=== PATIENT | male | born 1970 | race Caucasian/White ===

== ENCOUNTER 2020-05-29 16:18 | Inpatient (IN) | payer OTHER ==
[2020-05-29 17:44] VITALS: BMI 28.2
--- NOTE | 2020-05-29 17:50 | HP ---
CIWA Score Nausea/Vomitin Muscle Tremors: 3 Anxiety: 5 Agitation: 1-Slight > Activity Paroxysmal Sweats: 2 Orientation: 0-Oriented Tacttile Disturbances: 0-None Auditory Disturbances: 0-None Visual Disturbances: 0-None Headache: 0-None Present CIWA-Ar Total Score: 13 - Admission Criteria OASAS Guidelines: Admission for Medically Managed Detox: Requires at least one of the followin. CIWA greater than 12 2. Seizures within the past 24 hours 3. Delirium tremens within the past 24 hours 4. Hallucinations within the past 24 hours 5. Acute intervention needed for co occurring medical disorder 6. Acute intervention needed for co occurring psychiatric disorder 7. Severe withdrawal that cannot be handled at a lower level of care (continued vomiting, continued diarrhea, abnormal vital signs) requiring intravenous medication and/or fluids 8. Admission ROS [facility] - [facility] Chief Complaint: Seeking admission to detox from alcohol Allergies/Adverse Reactions: Allergies Allergy/AdvReac Type Severity Reaction Status Date / Time No Known Allergies Allergy Verified 05/29/20 19:38 History of Present Illness: 49 years old male with a long history of alcohol dependence is seeking admission to detox. This is his first admission to [facility] and he denies any prior detoxification. He reports that he drinks 2 pints of Vodka daily and that he started drinking heavily and continuously at age 47 years. He has medical of DM type 2, hypertension, psych. history of depression and denies suicidal ideation at this time. He is unemployed, lives alone and denies legal issues. He reports + eye solution lead and denies blackout and alcohol related seizures. Exam Limitations: No Limitations - Ebola screening Have you traveled outside of the country in the last 21 days: No Have you had contact with anyone from an Ebola affected area: No Have you been sick,other than usual withdrawal symptoms: No Do you have a fever: No - Review of Systems Constitutional: Chills, Malaise, Changes in sleep EENT: reports: No Symptoms Reported Respiratory: reports: No Symptoms reported Cardiac: reports: No Symptoms Reported GI: reports: No Symptoms Reported, Nausea, Poor Appetite, Poor Fluid Intake, Abdominal cramping : reports: No Symptoms Reported Musculoskeletal: reports: No Symptoms Reported Integumentary: reports: No Symptoms Reported Neuro: reports: Tremors Endocrine: reports: No Symptoms Reported Hematology: reports: No Symptoms Reported Psychiatric: reports: Mood/Affect Appropiate, Orientated x3, Anxious Other Systems: Reviewed and Negative Patient History - Patient Medical History Hx Anemia: No Hx Asthma: No Hx Chronic Obstructive Pulmonary Disease (COPD): No Hx Cancer: No Hx Cardiac Disorders: No Hx Congestive Heart Failure: No Hx Hypertension: Yes (Carvedilol) Hx Hypercholesterolemia: No Hx Pacemaker: No HX Cerebrovascular Accident: No Hx Seizures: No Hx Diabetes: Yes (Type 2 - Metformin) Hx Gastrointestinal Disorders: No Hx Liver Disease: No Hx Genitourinary Disorders: No Hx Sexually Transmitted Disorders: No Hx Renal Disease (ESRD): No Hx Thyroid Disease: No Hx Human Immunodeficiency Virus (HIV): No (Negative 1992) Hx Hepatitis C: No Hx Depression: Yes (Not on medication) Hx Suicide Attempt: No (Denies suicidal ideation at this time) Hx Bipolar Disorder: No Hx Schizophrenia: No - Patient Surgical History Past Surgical History: Yes Hx Neurologic Surgery: No Hx Cataract Extraction: No Hx Cardiac Surgery: No Hx Lung Surgery: No Hx Abdominal Surgery: No Hx Appendectomy: Yes (At age 76 years old) Hx Cholecystectomy: No Hx Genitourinary Surgery: No Hx Orthopedic Surgery: Yes (Bilateral hip replacement at age 30 years) Anesthesia Reaction: No - PPD History Previous Implant?: Yes Documented Results: Negative w/o proof Implanted On Prior R Admission?: No PPD to be Administered?: Yes - Reproductive History Patient is a Female of Child Bearing Age (11 -55 yrs old): No (Male) - Smoking Cessation Smoking history: Never smoked Have you smoked in the past 12 months: No Hx Chewing Tobacco Use: No Initiated information on smoking cessation: No - Substance & Tx. History Hx Alcohol Use: Yes Hx Substance Use: No Substance Use Type: Alcohol Hx Substance Use Treatment: No - Substances abused Alcohol Substance route: Oral Frequency: Daily Amount used: 2 pints Vodka Age of first use: 13 Date of last use: 05/29/20 Admission Physical Exam BHS - Physical General Appearance: Yes: Moderate Distress, Tremorous HEENTM: Yes: Within Normal Limits Respiratory: Yes: Lungs Clear, Normal Breath Sounds, No Respiratory Distress Neck: Yes: Within Normal Limits Breast: Yes: Breast Exam Deferred Cardiology: Yes: Regular Rhythm, Regular Rate Abdominal: Yes: Within Normal Limits Genitourinary: Yes: Within Normal Limits Back: Yes: Normal Inspection Musculoskeletal: Yes: Within Normal Limits Neurological: Yes: Within Normal Limits Integumentary: Yes: Within Normal Limits Lymphatic: Yes: Within Normal Limits - Diagnostic (1) Alcohol dependence with withdrawal, uncomplicated Current Visit: Yes Status: Acute (2) Hypertension Current Visit: Yes Status: Chronic Qualifiers: Hypertension type: essential hypertension Qualified Code(s): I10 - Essential (primary) hypertension (3) Depression Current Visit: Yes Status: Chronic Qualifiers: Depression Type: unspecified Qualified Code(s): F32.9 - Major depressive disorder, single episode, unspecified Cleared for Admission [facility] - Detox or Rehab [facility] Level of Care: Medically Managed Detox Regimen/Protocol: Librium Claeared for Rehab Admission: No Inpatient Rehab Admission - Rehab Decision to Admit Inpatient rehab admission?: No
[2020-05-29] MEDS ORDERED: MAG HYDROX/AL HYDROX/SIMETH 30 ML UNIT-DOSE CUP PO PRN (18:05)
[2020-05-29] MEDS ORDERED: ACETAMINOPHEN 325 MG TABLET (FP) PO PRN ×2 (18:05)
[2020-05-29] MEDS ORDERED: MENTHOL/PHENOL 1 EACH UD MM PRN (18:05)
[2020-05-29] MEDS ORDERED: MAGNESIUM CITRATE 300 ML BOTTLE PO PRN (18:05)
[2020-05-29] MEDS ORDERED: ONDANSETRON *ODT* 4 MG TABLET SL ONE (18:05)
[2020-05-29] MEDS ORDERED: BISMUTH SUBSALICYLATE 524 MG/30 ML UD PO PRN (18:05)
[2020-05-29] MEDS ORDERED: MAGNESIUM HYDROX 2400MG/30ML ORAL SUSPENSION 30 ML CUP PO PRN (18:05)
[2020-05-29] MEDS ORDERED: COLLOIDAL OATMEAL 1 BAR EACH TP PRN (18:20)
[2020-05-29] MEDS: chlordiazePOXIDE HCL 25 MG CAPSULE PO SCH (21:27)
[2020-05-29] MEDS: THIAMINE HCL 100 MG TABLET (FP) PO SCH (21:28)
[2020-05-29] MEDS: MELATONIN 5 MG TABLETS PO SCH (21:28)
[2020-05-29] MEDS: CARVEDILOL 25 MG TABLET (FP) PO SCH (22:42)
[2020-05-30] MEDS: chlordiazePOXIDE HCL 25 MG CAPSULE PO SCH ×3 (05:36→22:29)
[2020-05-30] MEDS: metFORMIN HCL 500 MG TABLET (FP) PO SCH ×2 (06:46→17:23)
--- NOTE | 2020-05-30 09:21 | EKG ---
Test Reason : Blood Pressure : / mmHG Vent. Rate : 064 BPM Atrial Rate : 064 BPM P-R Int : 132 ms QRS Dur : 094 ms QT Int : 464 ms P-R-T Axes : 039 043 041 degrees QTc Int : 478 ms NORMAL SINUS RHYTHM LEFT ATRIAL ENLARGEMENT LEFT VENTRICULAR HYPERTROPHY ABNORMAL ECG Confirmed by MD SHI, MICHAEL ([id number]) on 05/30/2020 9:21:10 AM Referred By: Confirmed By:MICHAEL OSULLIVAN MD
[2020-05-30] MEDS: PRENATAL VITAMINS W/ FOLIC ACID TABLET (FP) PO SCH (10:17)
[2020-05-30] MEDS: CARVEDILOL 25 MG TABLET (FP) PO SCH ×2 (10:17→22:29)
[2020-05-30] MEDS: chlordiazePOXIDE HCL 10 MG CAPSULE PO PRN ×2 (10:20→17:25)
[2020-05-30 11:08] LABS: HEMATOCRIT 46.3 % (35.4-49); HEMOGLOBIN 15.7 GM/dL (11.7-16.9); MCH 31.3 pg (25.7-33.7); MCHC 33.8 g/dl (32.0-35.9); MEAN CELL VOLUME 92.7 fl (80-96); MEAN PLT VOLUME 9.5 fl (7.5-11.1); PLATELET COUNT 209 K/MM3 (134-434); WHITE BLOOD COUNT 11.1 K/mm3 (4.0-10.0)
[2020-05-30 11:17] LABS: ALBUMIN 3.3 g/dl (3.4-5.0); BILIRUBIN,TOTAL 1.3 mg/dL (0.2-1); BLOOD UREA NITROGEN 11.5 mg/dL (7-18); CALCIUM 9.2 mg/dL (8.5-10.1); CREATININE 0.9 mg/dL (0.55-1.3); POTASSIUM 3.2 mmol/L (3.5-5.1); TOT PROT 6.5 g/dl (6.4-8.2)
--- NOTE | 2020-05-30 12:50 | PN ---
S CIWA - CIWA Score Nausea/Vomitin Muscle Tremors: 3 Anxiety: 3 Agitation: 3 Paroxysmal Sweats: 1-Minimal Palms Moist Orientation: 0-Oriented Tacttile Disturbances: 1-Very Mild Itch/Numbness Auditory Disturbances: 0-None Visual Disturbances: 0-None Headache: 2-Mild CIWA-Ar Total Score: 15 BHS Progress Note (SOAP) Subjective: alert,irritable,anxious,interrupted ,aching pain in the body and back, Objective: 05/30/20 14:11 Vital Signs Temperature 97.1 F L 05/30/20 12:33 Pulse Rate 80 05/30/20 12:33 Respiratory Rate 18 05/30/20 12:33 Blood Pressure 93/69 05/30/20 12:33 O2 Sat by Pulse Oximetry (%) 97 05/30/20 12:33 05/30/20 14:12 Laboratory Last Values WBC 11.1 K/mm3 (4.0-10.0) H 05/30/20 08:10 RBC 5.00 M/mm3 (4.00-5.60) 05/30/20 08:10 Hgb 15.7 GM/dL (11.7-16.9) 05/30/20 08:10 Hct 46.3 % (35.4-49) 05/30/20 08:10 MCV 92.7 fl (80-96) 05/30/20 08:10 MCH 31.3 pg (25.7-33.7) 05/30/20 08:10 MCHC 33.8 g/dl (32.0-35.9) 05/30/20 08:10 RDW 14.0 % (11.9-15.9) 05/30/20 08:10 Plt Count 209 K/MM3 (134-434) 05/30/20 08:10 MPV 9.5 fl (7.5-11.1) 05/30/20 08:10 Sodium 138 mmol/L (136-145) 05/30/20 08:10 Potassium 3.2 mmol/L (3.5-5.1) L 05/30/20 08:10 Chloride 95 mmol/L (98-107) L 05/30/20 08:10 Carbon Dioxide 37 mmol/L (21-32) H 05/30/20 08:10 Anion Gap 7 MMOL/L (8-16) L 05/30/20 08:10 BUN 11.5 mg/dL (7-18) 05/30/20 08:10 Creatinine 0.9 mg/dL (0.55-1.3) 05/30/20 08:10 Est GFR (CKD-EPI)AfAm 115.02 05/30/20 08:10 Est GFR (CKD-EPI)NonAf 99.24 05/30/20 08:10 POC Glucometer 139 UNITS (80-120) 05/30/20 06:43 Random Glucose 111 mg/dL (74-106) H 05/30/20 08:10 Calcium 9.2 mg/dL (8.5-10.1) 05/30/20 08:10 Total Bilirubin 1.3 mg/dL (0.2-1) H 05/30/20 08:10 AST 43 U/L (15-37) H 05/30/20 08:10 ALT 49 U/L (13-61) 05/30/20 08:10 Alkaline Phosphatase 69 U/L (45-117) 05/30/20 08:10 Total Protein 6.5 g/dl (6.4-8.2) 05/30/20 08:10 Albumin 3.3 g/dl (3.4-5.0) L 05/30/20 08:10 Syphilis Serology Non-reactive (NONREACTIVE) 05/30/20 08:10 COVID-19 (SIMA) Not detected (Not Detected) 05/29/20 07:45 Assessment: 05/30/20 14:13 withdrawal symptom Plan: continue detox k dur 20 meq po now then bid for 3 days,wbc 11.000,may be dehydration fuid,repeat cbc,bmp,fasting glucose in am,initial glucoe is 111
[2020-05-30] MEDS: IBUPROFEN 400 MG TABLET (FP) PO PRN (13:30)
[2020-05-30] MEDS ORDERED: POTASSIUM CHLORIDE TABS 20 MEQ TABLET.ER (FP) PO ONE (15:00)
--- NOTE | 2020-05-30 16:15 | CONSULT ---
[facility] Psychiatric Consult - Data Date of interview: 05/30/20 Admission source: [facility] Identifying data: First visit to [facility] and admission to [address] [place] [address] for this 49 y/o male self-referred for detoxification treatment. ADIEL issues : alcohol. 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 Substance Abuse History: Discussed with the patient. ADIEL profile as follows : Smoking history: Never smoked. Have you smoked in the past 12 months: No. Hx Chewing Tobacco Use: No. Initiated information on smoking cessation: No. - Substance & Tx. History. Hx Alcohol Use: Yes. Hx Substance Use: No. Substance Use Type: Alcohol. Hx Substance Use Treatment: No. - Substances abused. Alcohol. Substance route: Oral. Frequency: Daily. Amount used: 2 pints Vodka. Age of first use: 13. Date of last use: 05/29/20 Medical History: Medical profile is remarkable for hypertension, diabetes mellitus, psoriasis and history of surgeries (appendectomy + bilateral hip replacement). Psychiatric History: Patient denies history of psychiatric hospitalizations, OPD care or suicide attempts. Physical/Sexual Abuse/Trauma History: Trauma : divorce. Additional Comment: No toxicology found for review. Mental Status Exam - Mental Status Exam Alert and Oriented to: Time, Place, Person Cognitive Function: Good Patient Appearance: Well Groomed Mood: Withdrawn Affect: Appropriate, Normal Range Patient Behavior: Fatigued, Appropriate, Cooperative Speech Pattern: Clear, Appropriate Voice Loudness: Normal Thought Process: Intact, Goal Oriented Thought Disorder: Not Present Hallucinations: Denies Suicidal Ideation: Denies Homicidal Ideation: Denies Insight/Judgement: Fair Sleep: Poorly, Difficulty falling asleep Appetite: Good Gait/Station: Normal Psychiatric Findings - Problem List ([place] 1, 2,3) (1) Alcohol dependence with withdrawal, uncomplicated Current Visit: Yes Status: Acute (2) Insomnia Current Visit: Yes Status: Acute - Initial Treatment Plan Initial Treatment Plan: Psychoeducation. Motivational counseling. MAT services offered. Support. Sleep hygiene. Detoxification. Insomnia is addressed with suvorexant 5 mg po hs prn. Side effects/benefits discussed with patient. Consent granted. Observation.
[2020-05-30] MEDS: THIAMINE HCL 100 MG TABLET (FP) PO SCH (22:30)
[2020-05-30] MEDS: MELATONIN 5 MG TABLETS PO SCH (22:30)
[2020-05-30] MEDS: POTASSIUM CHLORIDE TABS 20 MEQ TABLET.ER (FP) PO SCH (22:30)
[2020-05-30] MEDS: SUVOREXANT 5 MG TABLET PO PRN (22:31)
[2020-05-31] MEDS: chlordiazePOXIDE 5 MG CAPSULE PO SCH ×3 (05:07→22:11)
[2020-05-31] MEDS: metFORMIN HCL 500 MG TABLET (FP) PO SCH ×2 (06:37→18:14)
[2020-05-31] MEDS: PRENATAL VITAMINS W/ FOLIC ACID TABLET (FP) PO SCH (10:15)
[2020-05-31] MEDS: CARVEDILOL 25 MG TABLET (FP) PO SCH ×2 (10:15→22:12)
[2020-05-31] MEDS: POTASSIUM CHLORIDE TABS 20 MEQ TABLET.ER (FP) PO SCH (10:15)
[2020-05-31] MEDS: chlordiazePOXIDE HCL 10 MG CAPSULE PO PRN ×2 (10:17→18:17)
[2020-05-31 10:59] LABS: MCH 31.8 pg (25.7-33.7); MCHC 34.8 g/dl (32.0-35.9); MEAN CELL VOLUME 91.2 fl (80-96); MEAN PLT VOLUME 9.3 fl (7.5-11.1); PLATELET COUNT 195 K/MM3 (134-434); RBC 4.72 M/mm3 (4.00-5.60); RDW 13.6 % (11.9-15.9); WHITE BLOOD COUNT 9.6 K/mm3 (4.0-10.0)
[2020-05-31 11:02] LABS: BLOOD UREA NITROGEN 17.6 mg/dL (7-18); CALCIUM 9.1 mg/dL (8.5-10.1); POTASSIUM 3.7 mmol/L (3.5-5.1)
--- NOTE | 2020-05-31 11:12 | PN ---
S CIWA - CIWA Score Nausea/Vomitin-Mild Nausea/No Vomiting Muscle Tremors: 1-None Visible, but [place] Anxiety: 2 Agitation: 2 Paroxysmal Sweats: No Perspiration Orientation: 0-Oriented Tacttile Disturbances: 1-Very Mild Itch/Numbness Auditory Disturbances: 0-None Visual Disturbances: 0-None Headache: 1-Very Mild CIWA-Ar Total Score: 8 BHS Progress Note (SOAP) Subjective: alert,irritable,anxious,interrupted sleep,tremor,aching pain in the body and back Objective: 05/31/20 11:10 Vital Signs Temperature 96.9 F L 05/31/20 08:29 Pulse Rate 68 05/31/20 08:29 Respiratory Rate 16 05/31/20 08:29 Blood Pressure 169/89 05/31/20 08:29 O2 Sat by Pulse Oximetry (%) 99 05/31/20 08:29 05/31/20 11:11 Laboratory Results - last 24 hr 05/29/20 05/30/20 05/30/20 07:45 08:10 08:10 WBC 11.1 H RBC 5.00 Hgb 15.7 Hct 46.3 MCV 92.7 MCH 31.3 MCHC 33.8 RDW 14.0 Plt Count 209 MPV 9.5 Sodium Potassium Chloride Carbon Dioxide Anion Gap BUN Creatinine Est GFR (CKD-EPI)AfAm Est GFR (CKD-EPI)NonAf POC Glucometer Random Glucose Calcium Total Bilirubin AST ALT Alkaline Phosphatase Total Protein Albumin Syphilis Serology Non-reactive COVID-19 (SIMA) Not detected 05/30/20 05/30/20 05/31/20 08:10 16:17 08:10 WBC 9.6 RBC 4.72 Hgb 15.0 Hct 43.0 MCV 91.2 MCH 31.8 MCHC 34.8 RDW 13.6 Plt Count 195 MPV 9.3 Sodium 138 Potassium 3.2 L Chloride 95 L Carbon Dioxide 37 H Anion Gap 7 L BUN 11.5 Creatinine 0.9 Est GFR (CKD-EPI)AfAm 115.02 Est GFR (CKD-EPI)NonAf 99.24 POC Glucometer 114 Random Glucose 111 H Calcium 9.2 Total Bilirubin 1.3 H AST 43 H ALT 49 Alkaline Phosphatase 69 Total Protein 6.5 Albumin 3.3 L Syphilis Serology COVID-19 (SIMA) 05/31/20 08:10 WBC RBC Hgb Hct MCV MCH MCHC RDW Plt Count MPV Sodium 142 Potassium 3.7 Chloride 100 Carbon Dioxide 36 H Anion Gap 6 L BUN 17.6 Creatinine 1.0 Est GFR (CKD-EPI)AfAm 101.26 Est GFR (CKD-EPI)NonAf 87.37 POC Glucometer Random Glucose 112 H Calcium 9.1 Total Bilirubin AST ALT Alkaline Phosphatase Total Protein Albumin Syphilis Serology COVID-19 (ISMA) Assessment: 05/31/20 11:11 withdrawal symptom Plan: continue detox librium regimen,encourage oral fluid,bgm monitoring,k is 3.7,will d/c k
[2020-05-31] MEDS: IBUPROFEN 400 MG TABLET (FP) PO PRN (13:19)
[2020-05-31] MEDS ORDERED: BENZOCAINE 20 % GEL TUBE MM PRN (14:37)
--- NOTE | 2020-05-31 14:39 | PN ---
BHS Progress Note Note: toothache,anbesom ordered prn
[2020-05-31] MEDS ORDERED: HYDROCHLOROTHIAZIDE 25 MG TABLET (FP) PO ONE (18:36)
--- NOTE | 2020-05-31 18:38 | PN ---
[facility] Progress Note Note: Vital Signs Temperature 97.3 F L 05/31/20 16:37 Pulse Rate 72 05/31/20 16:37 Respiratory Rate 18 05/31/20 16:37 Blood Pressure 174/99 H 05/31/20 16:37 O2 Sat by Pulse Oximetry (%) 97 05/31/20 12:38 Laboratory Last Values WBC 9.6 K/mm3 (4.0-10.0) 05/31/20 08:10 RBC 4.72 M/mm3 (4.00-5.60) 05/31/20 08:10 Hgb 15.0 GM/dL (11.7-16.9) 05/31/20 08:10 Hct 43.0 % (35.4-49) 05/31/20 08:10 MCV 91.2 fl (80-96) 05/31/20 08:10 MCH 31.8 pg (25.7-33.7) 05/31/20 08:10 MCHC 34.8 g/dl (32.0-35.9) 05/31/20 08:10 RDW 13.6 % (11.9-15.9) 05/31/20 08:10 Plt Count 195 K/MM3 (134-434) 05/31/20 08:10 MPV 9.3 fl (7.5-11.1) 05/31/20 08:10 Sodium 142 mmol/L (136-145) 05/31/20 08:10 Potassium 3.7 mmol/L (3.5-5.1) 05/31/20 08:10 Chloride 100 mmol/L (98-107) 05/31/20 08:10 Carbon Dioxide 36 mmol/L (21-32) H 05/31/20 08:10 Anion Gap 6 MMOL/L (8-16) L 05/31/20 08:10 BUN 17.6 mg/dL (7-18) 05/31/20 08:10 Creatinine 1.0 mg/dL (0.55-1.3) 05/31/20 08:10 Est GFR (CKD-EPI)AfAm 101.26 05/31/20 08:10 Est GFR (CKD-EPI)NonAf 87.37 05/31/20 08:10 POC Glucometer 166 UNITS (80-120) 09/03/20 16:46 Random Glucose 112 mg/dL (74-106) H 05/31/20 08:10 Calcium 9.1 mg/dL (8.5-10.1) 05/31/20 08:10 Total Bilirubin 1.3 mg/dL (0.2-1) H 05/30/20 08:10 AST 43 U/L (15-37) H 05/30/20 08:10 ALT 49 U/L (13-61) 05/30/20 08:10 Alkaline Phosphatase 69 U/L (45-117) 05/30/20 08:10 Total Protein 6.5 g/dl (6.4-8.2) 05/30/20 08:10 Albumin 3.3 g/dl (3.4-5.0) L 05/30/20 08:10 Syphilis Serology Non-reactive (NONREACTIVE) 05/30/20 08:10 COVID-19 (SIMA) Not detected (Not Detected) 05/29/20 07:45 elevated BP on coreg 25mg BID, high BP d/t withdrawal sx. One time dose HCTZ ordered Increase fluids Continue detox Continue to monitor
[2020-05-31] MEDS: MELATONIN 5 MG TABLETS PO SCH (22:12)
[2020-05-31] MEDS: THIAMINE HCL 100 MG TABLET (FP) PO SCH (22:12)
[2020-05-31] MEDS: SUVOREXANT 5 MG TABLET PO PRN (22:13)
[2020-06-01] MEDS: chlordiazePOXIDE HCL 10 MG CAPSULE PO SCH ×3 (05:45→21:07)
[2020-06-01] MEDS: METHOCARBAMOL 500 MG TABLET PO PRN ×3 (06:04→23:08)
[2020-06-01] MEDS: metFORMIN HCL 500 MG TABLET (FP) PO SCH ×2 (06:47→17:41)
[2020-06-01] MEDS: PRENATAL VITAMINS W/ FOLIC ACID TABLET (FP) PO SCH (10:09)
[2020-06-01] MEDS: chlordiazePOXIDE HCL 10 MG CAPSULE PO PRN ×2 (10:09→17:44)
[2020-06-01] MEDS: CARVEDILOL 25 MG TABLET (FP) PO SCH ×2 (10:09→21:07)
--- NOTE | 2020-06-01 16:09 | PN ---
S CIWA - CIWA Score Nausea/Vomitin-Mild Nausea/No Vomiting Muscle Tremors: 1-None Visible, but [place] Anxiety: 1-Mildly Anxious Agitation: 1-Slight > Activity Paroxysmal Sweats: No Perspiration Orientation: 0-Oriented Tacttile Disturbances: 1-Very Mild Itch/Numbness Auditory Disturbances: 0-None Visual Disturbances: 0-None Headache: 1-Very Mild CIWA-Ar Total Score: 6 BHS Progress Note (SOAP) Subjective: alert,irritable,anxious,interrupted sleep,aching pain,tooth ache is less Objective: 06/01/20 16:08 Vital Signs Temperature 97.5 F L 06/01/20 12:51 Pulse Rate 81 06/01/20 12:51 Respiratory Rate 18 06/01/20 12:51 Blood Pressure 146/95 06/01/20 12:51 O2 Sat by Pulse Oximetry (%) 97 06/01/20 12:51 Assessment: 06/01/20 16:08 withdrawal symptom Plan: continue detox librium regimen,discharge in am
[2020-06-01] MEDS: MELATONIN 5 MG TABLETS PO SCH (21:07)
[2020-06-01] MEDS: SUVOREXANT 5 MG TABLET PO PRN (21:08)
[2020-06-01] MEDS: THIAMINE HCL 100 MG TABLET (FP) PO SCH (21:10)
[2020-06-02] MEDS ORDERED: chlordiazePOXIDE HCL 10 MG CAPSULE PO ONE (05:00)
[2020-06-02] MEDS: METHOCARBAMOL 500 MG TABLET PO PRN (06:00)
[2020-06-02] MEDS: metFORMIN HCL 500 MG TABLET (FP) PO SCH (08:10)
--- NOTE | 2020-06-02 09:44 | DS ---
[facility] Detox Discharge Summary Admission Date: 05/29/20 Discharge Date: 06/02/20 - History Present History: Alcohol Dependence Additional Comments: Pt is medically cleared and discharged to [facility] for continued management. Pt completed the detox protocol. Pt is encouraged to follow through with the detox protocol which he verbalized understanding. Pt is AOX3, in no acute respiratory distress, Full ROM, and ambulatory. Pertinent Past History: h/o HTN, DM, and alcohol use disorder. - Physical Exam Results Vital Signs: Vital Signs Temperature 97.0 F L 06/02/20 06:20 Pulse Rate 78 06/02/20 07:57 Respiratory Rate 18 06/02/20 07:57 Blood Pressure 154/114 H 06/02/20 07:57 O2 Sat by Pulse Oximetry (%) 99 06/02/20 06:20 Vital Signs 06/02/20 06/02/20 06/02/20 06:19 06:20 07:57 Temperature 97.0 F L 97.0 F L Pulse Rate 75 78 78 Respiratory 18 18 18 Rate Blood Pressure 196/99 H 171/99 H 154/114 H O2 Sat by Pulse 99 99 Oximetry (%) 06/02/20 08:52 Temperature 97.1 F L Pulse Rate 85 Respiratory 18 Rate Blood Pressure 120/81 O2 Sat by Pulse Oximetry (%) Laboratory Last Values WBC 9.6 K/mm3 (4.0-10.0) 05/31/20 08:10 RBC 4.72 M/mm3 (4.00-5.60) 05/31/20 08:10 Hgb 15.0 GM/dL (11.7-16.9) 05/31/20 08:10 Hct 43.0 % (35.4-49) 05/31/20 08:10 MCV 91.2 fl (80-96) 05/31/20 08:10 MCH 31.8 pg (25.7-33.7) 05/31/20 08:10 MCHC 34.8 g/dl (32.0-35.9) 05/31/20 08:10 RDW 13.6 % (11.9-15.9) 05/31/20 08:10 Plt Count 195 K/MM3 (134-434) 05/31/20 08:10 MPV 9.3 fl (7.5-11.1) 05/31/20 08:10 Sodium 142 mmol/L (136-145) 05/31/20 08:10 Potassium 3.7 mmol/L (3.5-5.1) 05/31/20 08:10 Chloride 100 mmol/L (98-107) 05/31/20 08:10 Carbon Dioxide 36 mmol/L (21-32) H 05/31/20 08:10 Anion Gap 6 MMOL/L (8-16) L 05/31/20 08:10 BUN 17.6 mg/dL (7-18) 05/31/20 08:10 Creatinine 1.0 mg/dL (0.55-1.3) 05/31/20 08:10 Est GFR (CKD-EPI)AfAm 101.26 05/31/20 08:10 Est GFR (CKD-EPI)NonAf 87.37 05/31/20 08:10 POC Glucometer 125 UNITS (80-120) 06/02/20 05:58 Random Glucose 112 mg/dL (74-106) H 05/31/20 08:10 Calcium 9.1 mg/dL (8.5-10.1) 05/31/20 08:10 Total Bilirubin 1.3 mg/dL (0.2-1) H 05/30/20 08:10 AST 43 U/L (15-37) H 05/30/20 08:10 ALT 49 U/L (13-61) 05/30/20 08:10 Alkaline Phosphatase 69 U/L (45-117) 05/30/20 08:10 Total Protein 6.5 g/dl (6.4-8.2) 05/30/20 08:10 Albumin 3.3 g/dl (3.4-5.0) L 05/30/20 08:10 Syphilis Serology Non-reactive (NONREACTIVE) 05/30/20 08:10 COVID-19 (SIMA) Not detected (Not Detected) 05/29/20 07:45 Labs noted. Pertinent Admission Physical Exam Findings: withdrawal symptoms. - Treatment Hospital Course: Detox Protocol Followed, Detoxed Safely, Responded well, Discharged Condition Good, Rehab Referral Accepted Patient has Accepted a Rehab Referral to: [facility]. - Medication Discharge Medications: Ambulatory Orders Carvedilol 25 mg PO BID 09/01/20 Metformin HCl [Glucophage] 500 mg PO BID 05/29/20 - Diagnosis (1) Diabetes Status: Chronic (2) Alcohol dependence with withdrawal, uncomplicated Status: Acute (3) Hypertension Status: Chronic Qualifiers: Hypertension type: essential hypertension Qualified Code(s): I10 - Essential (primary) hypertension - AMA Did Patient Leave Against Medical Advice: No
[2020-06-02 09:49] VITALS: BP 120/81; PULSE 85; TEMP 97.1
[2020-06-02] MEDS: PRENATAL VITAMINS W/ FOLIC ACID TABLET (FP) PO SCH (10:26)
[2020-06-02] MEDS: CARVEDILOL 25 MG TABLET (FP) PO SCH (10:26)
== END 2020-06-02 11:35 | disposition other institution (70) | DRG 775 ==
LOC: YASAS 16:18 → Y3N 18:21
PROVIDERS: ADMIT Allergy & Immunology; ATTEND Allergy & Immunology
PROC: HZ2ZZZZ Detoxification Services for Substance Abuse Treatment (ICD-10-PCS; principal; 2020-05-29)
DX: F10.230 Alcohol dependence with withdrawal, uncomplicated (principal); F32.9 Major depressive disorder, single episode, unspecified; G47.00 Insomnia, unspecified; I10 Essential (primary) hypertension; E11.9 Type 2 diabetes mellitus without complications; K08.89 Other specified disorders of teeth and supporting structures; L40.9 Psoriasis, unspecified; Z96.643 Presence of artificial hip joint, bilateral; Z79.84 Long term (current) use of oral hypoglycemic drugs; Z90.49 Acquired absence of other specified parts of digestive tract
CPT/HCPCS: 36415; 80048; 80053; 82962; 85027; 86780; 93005; 93010; U0003

== ENCOUNTER 2020-06-02 11:38 | Inpatient (IN) | payer OTHER ==
--- NOTE | 2020-06-02 12:30 | HP ---
[facility] Rehab Assess/Revision - Admission History Admitted to Rehab from: [facility] Date of Admission to Rehab: 06/02/20 - Vital signs Vital Signs: Vital Signs Period Temp Pulse Resp BP Sys/Leavitt Pulse Ox Last 24 Hr 98.7 F 82 16 136/88 Vital Signs 06/02/20 11:54 Temperature 98.7 F Pulse Rate 82 Respiratory 16 Rate Blood Pressure 136/88 - Findings Detox History & Physical reviewed: Yes Concur with findings: Yes Inpatient Rehab Admission - Rehab Decision to Admit Inpatient rehab admission?: Yes - Initial Determination Are CD services needed?: Yes Free of communicable disease: Yes Not in need of hospitalization: Yes - Rehab Admission Criteria Previous failed treatment: Yes Poor recovery environment: Yes Comorbidities: Yes Lacks judgement: Yes Patient is meeting Inpatient Rehab admission criteria:: Yes
[2020-06-02] MEDS ORDERED: MAG HYDROX/AL HYDROX/SIMETH 30 ML UNIT-DOSE CUP PO PRN (12:32)
[2020-06-02] MEDS ORDERED: LOPERAMIDE HCL 2 MG CAPSULE PO PRN (12:32)
[2020-06-02] MEDS ORDERED: P-EPHED 60MG/TRIPROLIDI 2.5MG TABLET PO PRN (12:32)
[2020-06-02] MEDS ORDERED: MAGNESIUM HYDROX 2400MG/30ML ORAL SUSPENSION 30 ML CUP PO PRN (12:32)
[2020-06-02] MEDS ORDERED: IBUPROFEN 400 MG TABLET (FP) PO PRN (12:32)
[2020-06-02] MEDS ORDERED: MAGNESIUM CITRATE 300 ML BOTTLE PO PRN (12:32)
[2020-06-02] MEDS ORDERED: MENTHOL/PHENOL 1 EACH UD MM PRN (12:32)
[2020-06-02] MEDS ORDERED: ACETAMINOPHEN 325 MG TABLET (FP) PO PRN (12:32)
[2020-06-02] MEDS ORDERED: guaiFENesin 200 MG/10 ML 10 ML UNIT-DOSE CUPS PO PRN (12:32)
[2020-06-02] MEDS ORDERED: COLLOIDAL OATMEAL 1 BAR EACH TP PRN (12:36)
[2020-06-02] MEDS: hydrOXYzine PAMOATE 25 MG CAPSULE (FP) PO PRN ×2 (14:58→21:29)
--- NOTE | 2020-06-02 15:01 | PN ---
[facility] Progress Note Note: Psychiatry Attending's note : Transferred to [address] For rehabilitation treatment. From [address] [place] [address]. RN Ms Bobbi called for renewal of belsomra. Mr Alcantar is already known to clinical writer. See note of 05/30/20. Belsomra 5 mg po hs prn. Ordered at patient's request (on consent).
[2020-06-02] MEDS: metFORMIN HCL 500 MG TABLET (FP) PO SCH (16:35)
[2020-06-02] MEDS: MELATONIN 5 MG TABLETS PO SCH (21:26)
[2020-06-02] MEDS: THIAMINE HCL 100 MG TABLET (FP) PO SCH (21:26)
[2020-06-02] MEDS ORDERED: PT OWN MED DRAWER 7, Y5N ONE (21:27)
[2020-06-02] MEDS: SUVOREXANT 5 MG TABLET PO PRN (21:28)
[2020-06-02] MEDS: CARVEDILOL 25 MG TABLET (FP) PO SCH (22:15)
[2020-06-03] MEDS: hydrOXYzine PAMOATE 25 MG CAPSULE (FP) PO PRN ×3 (06:53→21:06)
[2020-06-03] MEDS: metFORMIN HCL 500 MG TABLET (FP) PO SCH ×2 (06:53→16:26)
[2020-06-03] MEDS: CARVEDILOL 25 MG TABLET (FP) PO SCH ×2 (09:19→21:06)
[2020-06-03] MEDS ORDERED: PRENATAL VITAMINS W/ FOLIC ACID TABLET (FP) PO SCH (10:00)
[2020-06-03] MEDS: THIAMINE HCL 100 MG TABLET (FP) PO SCH (21:05)
[2020-06-03] MEDS: MELATONIN 5 MG TABLETS PO SCH (21:05)
[2020-06-03] MEDS: SUVOREXANT 5 MG TABLET PO PRN (21:05)
[2020-06-04] MEDS: metFORMIN HCL 500 MG TABLET (FP) PO SCH ×2 (06:25→17:06)
[2020-06-04] MEDS: hydrOXYzine PAMOATE 25 MG CAPSULE (FP) PO PRN ×3 (06:25→21:32)
--- NOTE | 2020-06-04 07:34 | PN ---
[facility] Progress Note Note: Patient reports sleeping poorly and requests increase in Belsomra dosage. Will increase medication to 10 mg/hs prn for insomnia
--- NOTE | 2020-06-04 07:54 | PN ---
[facility] Progress Note Note: Patient's blood pressure is B/P 150/105. Patient is asymptomatic. Vital Signs Temperature 98 F 06/04/20 07:28 Pulse Rate 81 06/04/20 07:28 Respiratory Rate 20 06/04/20 07:28 Blood Pressure 150/105 H 06/04/20 07:28 O2 Sat by Pulse Oximetry (%) 98 06/04/20 07:28 Action: Clonidine 0.1mg tablet oral ordered
[2020-06-04] MEDS ORDERED: cloNIDine HCL 0.1 MG TABLET PO ONE (08:45)
[2020-06-04] MEDS: CARVEDILOL 25 MG TABLET (FP) PO SCH ×2 (10:26→21:31)
[2020-06-04] MEDS: PRENATAL VITAMINS W/ FOLIC ACID TABLET (FP) PO SCH (10:27)
--- NOTE | 2020-06-04 10:53 | PN ---
[facility] Progress Note Note: PATIENT EVALUATED FOR PERSISTENT ELEVATED BLOOD PRESSURE. MEDICATED WITH CLONIDINE 0.1MG PO X ONE DOSE THIS MORNING, BLOOD PRESSURE REPEATED 147/98, HR 81. PATIENT DENIES CHEST PAIN, SOB AND DIZZINESS. ADMITTED TO REHAB FOR ALCOHOL DPPENDENCE. HAS HX OF DM AND HTN. Vital Signs Temperature 98 F 06/04/20 07:28 Pulse Rate 81 06/04/20 08:30 Respiratory Rate 18 06/04/20 08:30 Blood Pressure 149/97 06/04/20 08:30 O2 Sat by Pulse Oximetry (%) 98 06/04/20 07:28 Laboratory Tests 06/02/20 06/03/20 06/03/20 16:36 06:52 16:26 POC Glucometer 144 135 112 06/04/20 06:24 POC Glucometer 136 PE ALERT AND ORIENTED X 3 SKIN WARM AND DRY +PERRLA,EOMS INTACT BL CAR S1S2, RRR, NO MURMURS OR GALLOPS RESP CTA BL, NO WHEEZES OR RALES EXT FULL ROM, AMB AD HARJIT NO TREMORS A/P: HTN ALCOHOL DEPENDENCE DM WILL ADD LISINOPRIL 10MG DAILY AUBREY, NCS DIET CONTINUED CONTINUE METFORMIN ORDERED MONITOR CLINICALLY
[2020-06-04] MEDS: THIAMINE HCL 100 MG TABLET (FP) PO SCH (21:31)
[2020-06-04] MEDS: SUVOREXANT 10 MG TABLET PO PRN (21:32)
[2020-06-04] MEDS ORDERED: SUVOREXANT 5 MG TABLET PO PRN (22:00)
[2020-06-05] MEDS: hydrOXYzine PAMOATE 25 MG CAPSULE (FP) PO PRN ×2 (06:04→12:00)
[2020-06-05] MEDS: metFORMIN HCL 500 MG TABLET (FP) PO SCH ×2 (06:51→16:20)
[2020-06-05] MEDS: PRENATAL VITAMINS W/ FOLIC ACID TABLET (FP) PO SCH (10:16)
[2020-06-05] MEDS: LISINOPRIL 10 MG TABLET PO SCH (10:17)
[2020-06-05] MEDS: CARVEDILOL 25 MG TABLET (FP) PO SCH ×2 (10:18→21:01)
[2020-06-05] MEDS ORDERED: PT OWN MED DRAWER 7, Y5N ONE ×2 (10:19→18:51)
[2020-06-05] MEDS ORDERED: BENZOCAINE 20 % GEL TUBE MM PRN (15:22)
[2020-06-05] MEDS: hydrOXYzine PAMOATE 50 MG CAPSULE (FP) PO PRN (16:20)
[2020-06-05] MEDS: METHOCARBAMOL 500 MG TABLET PO SCH ×2 (16:59→21:01)
--- NOTE | 2020-06-05 17:06 | CONSULT ---
[facility] Psychiatric Consult - Data Date of interview: 06/05/20 Admission source: Transfer from [address] [place] [address]. Identifying data: Detoxification completed at [address] [place] [address]. Patient is now admitted to [address] for continuity of care (rehabilitation for maintenance of sobriety). ADIEL issue : alcohol. 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 Substance Abuse History: Discussed with the patient. ADIEL profile as follows : Smoking history: Never smoked. Have you smoked in the past 12 months: No. Hx Chewing Tobacco Use: No. Initiated information on smoking cessation: No. - Scott bstance & Tx. History. Hx Alcohol Use: Yes. Hx Substance Use: No. Substance Use Type: Alcohol. Hx Substance Use Treatment: No. - Substances abused. Alcohol. Substance route: Oral. Frequency: Daily. Amount used: 2 pints Vodka. Age of first use: 13. Date of last use: 05/29/20 Medical History: No change in medical profile since interview of 05/31/20. Medical history remains as follows : hypertension, diabetes mellitus, psoriasis and history of surgeries (appendectomy + bilateral hip replacement). Psychiatric History: Patient denies history of psychiatric hospitalizations, OPD care or suicide attempts. Physical/Sexual Abuse/Trauma History: Trauma : divorce. Mental Status Exam - Mental Status Exam Alert and Oriented to: Time, Place, Person Cognitive Function: Good Patient Appearance: Well Groomed Mood: Hopeful, Euthymic Affect: Appropriate, Normal Range Patient Behavior: Appropriate, Cooperative (friendly on approach) Speech Pattern: Clear, Appropriate Voice Loudness: Normal Thought Process: Intact, Goal Oriented Thought Disorder: Not Present Hallucinations: Denies Suicidal Ideation: Denies Homicidal Ideation: Denies Insight/Judgement: Fair Sleep: Poorly, Difficulty falling asleep Appetite: Good Gait/Station: Normal Psychiatric Findings - Problem List ([place] 1, 2,3) (1) Alcohol use disorder Current Visit: Yes Status: Chronic (2) Insomnia Current Visit: Yes Status: Chronic - Initial Treatment Plan Initial Treatment Plan: Continue psychoeducation. Support. Motivational counseling. Groups (with observance of COVID-19 guidelines : social distancing, mask wearing, hand washing). Patient insists on taking quetiapine at bedtime. " I used seroquel before and it was effective in helping me sleep at night." Mr Alcantar is reminded of his diabetic status. He maintains his decision to be treated with seroquel in spite of his knowledge of the risk of complications. Alternate hypnotic medications were presented to the patient (trazodone, tricyclics, mirtazapine) : patient declines. Gave consent (verbal) to MD for se roquel 50 mg po hs. Observation.
[2020-06-05] MEDS: QUEtiapine FUMARATE 50 MG TABLET PO SCH (21:01)
[2020-06-05] MEDS: SUVOREXANT 10 MG TABLET PO PRN (21:02)
[2020-06-05] MEDS: THIAMINE HCL 100 MG TABLET (FP) PO SCH (21:04)
[2020-06-06] MEDS: metFORMIN HCL 500 MG TABLET (FP) PO SCH ×2 (06:12→16:36)
[2020-06-06] MEDS: hydrOXYzine PAMOATE 50 MG CAPSULE (FP) PO PRN ×3 (06:14→14:07)
[2020-06-06] MEDS: PRENATAL VITAMINS W/ FOLIC ACID TABLET (FP) PO SCH (09:36)
[2020-06-06] MEDS: METHOCARBAMOL 500 MG TABLET PO SCH ×4 (09:36→21:00)
[2020-06-06] MEDS: LISINOPRIL 10 MG TABLET PO SCH (09:36)
[2020-06-06] MEDS: CARVEDILOL 25 MG TABLET (FP) PO SCH ×2 (09:36→20:59)
[2020-06-06] MEDS: QUEtiapine FUMARATE 50 MG TABLET PO SCH (20:59)
[2020-06-06] MEDS: SUVOREXANT 10 MG TABLET PO PRN (21:00)
[2020-06-06] MEDS: THIAMINE HCL 100 MG TABLET (FP) PO SCH (21:00)
[2020-06-07] MEDS: metFORMIN HCL 500 MG TABLET (FP) PO SCH ×2 (06:13→16:33)
[2020-06-07] MEDS: hydrOXYzine PAMOATE 50 MG CAPSULE (FP) PO PRN ×3 (06:14→16:33)
[2020-06-07] MEDS: PRENATAL VITAMINS W/ FOLIC ACID TABLET (FP) PO SCH (10:19)
[2020-06-07] MEDS: LISINOPRIL 10 MG TABLET PO SCH (10:19)
[2020-06-07] MEDS: CARVEDILOL 25 MG TABLET (FP) PO SCH ×2 (10:19→21:02)
[2020-06-07] MEDS: METHOCARBAMOL 500 MG TABLET PO SCH ×4 (10:19→21:02)
[2020-06-07] MEDS ORDERED: PT OWN MED DRAWER 7, Y5N ONE (19:13)
[2020-06-07] MEDS: THIAMINE HCL 100 MG TABLET (FP) PO SCH (21:02)
[2020-06-07] MEDS: QUEtiapine FUMARATE 50 MG TABLET PO SCH (21:02)
[2020-06-07] MEDS: SUVOREXANT 10 MG TABLET PO PRN (21:02)
[2020-06-08] MEDS: metFORMIN HCL 500 MG TABLET (FP) PO SCH ×2 (06:36→16:30)
[2020-06-08] MEDS: hydrOXYzine PAMOATE 50 MG CAPSULE (FP) PO PRN ×2 (06:38→16:30)
[2020-06-08] MEDS ORDERED: CYCLOBENZAPRINE HCL 10 MG TABLET (FP) PO ONE (10:05)
[2020-06-08] MEDS: PRENATAL VITAMINS W/ FOLIC ACID TABLET (FP) PO SCH (10:27)
[2020-06-08] MEDS: LISINOPRIL 10 MG TABLET PO SCH (10:27)
[2020-06-08] MEDS: CARVEDILOL 25 MG TABLET (FP) PO SCH ×2 (10:29→21:02)
[2020-06-08] MEDS ORDERED: PT OWN MED DRAWER 7, Y5N ONE ×2 (10:29→18:18)
[2020-06-08] MEDS: METHOCARBAMOL 500 MG TABLET PO SCH (10:32)
--- NOTE | 2020-06-08 11:13 | PN ---
S Progress Note Note: PATIENT C/O MUSCLE ACHES AND STATES ROBAXIN NOT HELPING. REQUESTED TO START SOMA " THIS MEDICATION DEFINITELY WORKS". PATIENT INFORMED SOMA IS A CONTROLLED SUBSTANCE AND SUCH MEDICATIONS ARE NOT ORDERED IN REHAB. PATIENT STATES MUSCLE ACHES ARE DULL, GENERALIZED AND PERSISTENT. Vital Signs Temperature 97.7 F 06/08/20 09:30 Pulse Rate 85 06/08/20 09:30 Respiratory Rate 18 06/08/20 09:30 Blood Pressure 132/84 06/08/20 09:30 O2 Sat by Pulse Oximetry (%) 96 06/08/20 06:12 Laboratory Tests 06/02/20 06/03/20 06/03/20 16:36 06:52 16:26 POC Glucometer 144 135 112 06/04/20 06/04/20 06/05/20 06:24 17:08 06:03 POC Glucometer 136 226 136 06/05/20 06/06/20 06/06/20 16:18 06:12 16:37 POC Glucometer 157 116 176 06/07/20 06/07/20 06/08/20 06:12 16:35 06:36 POC Glucometer 132 148 152 PE ALERT AND ORIENTED X 3 SKIN WARM AND DRY +PERRLA, EOMS INTACT BL GI NT ND EXT FULL ROM, AMB AD HARJIT NO TREMORS A/P: MUSCLE PAIN WILL D/C ROBAXIN START FLEXERIL 10MG PO BID-FIRST DOSE NOW CONTINUE TO MONITOR CLINICALLY
--- NOTE | 2020-06-08 16:47 | PN ---
Psychiatric Progress Note Vital Signs: Vital Signs Period Temp Pulse Resp BP Sys/Leavitt Pulse Ox Last 24 Hr 97.3 F-97.8 F 85-94 18-20 132-162/84-101 95-96 Date of Session: 06/08/20 Chief Complaint:: "I'm not sleeping well through the night. " HPI: Patient admitted to for alcohol dependence. Consultation ordered due to patient c/o insomnia. ROS: Patient is ambulatory, alert+ oriented X3. Current Medications: Active Medications Generic Name Dose Route Start Last Admin Trade Name Freq PRN Reason Stop Dose Admin Acetaminophen 650 mg 06/02/20 12:32 Tylenol - PO Q6H PRN FEVER Al Hydroxide/Mg Hydroxide 30 ml 06/02/20 12:32 Mylanta Oral Suspension - PO Q6H PRN DYSPEPSIA Benzocaine 1 applic 06/05/20 15:22 Anbesol - MM Q6H PRN FOR TOOTHACHE Carvedilol 25 mg 06/02/20 22:00 06/08/20 10:29 Coreg - PO 25 mg BID SONY Administration Colloidal Oatmeal 1 applic 06/02/20 12:36 Aveeno Soap - TP DAILY PRN HYGEINE Cyclobenzaprine HCl 10 mg 06/08/20 22:00 Flexeril - PO BID SONY Eucalyptus/Menthol/Phenol/Sorbitol 1 each 06/02/20 12:32 Cepastat Lozenge - MM Q4H PRN SORE THROAT Guaifenesin 10 ml 06/02/20 12:32 Robitussin - PO Q6H PRN COUGH Hydroxyzine Pamoate 50 mg 06/05/20 15:20 06/08/20 16:30 Vistaril - PO 50 mg Q4H PRN Administration FOR ITCHING Ibuprofen 400 mg 06/02/20 12:32 06/03/20 14:38 Motrin - PO 400 mg Q6H PRN Administration Pain Level 4-6 Lisinopril 10 mg 06/05/20 10:00 06/08/20 10:27 Prinivil PO 10 mg DAILY SONY Administration Loperamide HCl 4 mg 06/02/20 12:32 Imodium - PO Q6H PRN DIARRHEA Magnesium Citrate 300 ml 06/02/20 12:32 Citroma - PO Q48H PRN CONSTIPATION Magnesium Hydroxide 30 ml 06/02/20 12:32 Milk Of Magnesia - PO DAILY PRN CONSTIPATION Melatonin 5 mg 06/08/20 22:00 Melatonin PO HS PRN INSOMNIA Metformin HCl 500 mg 06/02/20 16:30 06/08/20 16:30 Glucophage - PO 500 mg BIDAC SONY Administration Multivit/Folic Acid/Iron 1 tab 06/04/20 10:00 06/08/20 10:27 Vitamins (Sjr) - PO 1 tab DAILY SONY Administration Pseudoephedrine/Triprolidine 1 combo 06/02/20 12:32 Actifed - PO TID PRN NASAL CONGESTION Quetiapine Fumarate 100 mg 06/08/20 22:00 Seroquel - PO HS SONY Thiamine HCl 100 mg 06/02/20 22:00 06/07/20 21:02 Vitamin B1 - PO 100 mg HS SONY Administration Medication(s) Change(s): Yes. 1) Will d/c Seroquel 50mg HS. 2) Will order Seroquel 100mg HS + Melatonin 5mg HS. Current Side Effect: No Lab tests ordered: No Lab tests reviewed: Yes Provider note:: Patient seen by Dr. Chavez. Dr. Chavez note read and appreciated. Mr. Alcantar reports difficulty sleeping despite accepting seroquel 50mg HS. Patient requesting an increase in seroquel. Will d/c seroquel 50mg HS and will order Seroquel 100mg HS + Melatonin 5mg HS. Patient also educated on the importance of proper sleep hygiene. Benefits and side effects discussed. Verbal consent given. Patient satisified and receptive to feedback. Total face to face time:: 25 Mental Status Exam - Mental Status Exam Alert and Oriented to: Time, Place, Person Cognitive Function: Good Patient Appearance: Well Groomed Mood: Hopeful Affect: Appropriate Patient Behavior: Appropriate, Cooperative Speech Pattern: Appropriate Voice Loudness: Normal Thought Process: Intact, Goal Oriented Thought Disorder: Not Present Hallucinations: Denies Suicidal Ideation: Denies Homicidal Ideation: Denies Insight/Judgement: Poor Sleep: Poorly Appetite: Fair Muscle strength/Tone: Normal Gait/Station: Normal Psychiatric Treatment Plan - Problem List (1) Alcohol use disorder Current Visit: Yes (2) Insomnia Current Visit: Yes
[2020-06-08] MEDS: THIAMINE HCL 100 MG TABLET (FP) PO SCH (21:02)
[2020-06-08] MEDS: QUEtiapine FUMARATE 50 MG TABLET PO SCH (21:03)
[2020-06-08] MEDS: CYCLOBENZAPRINE HCL 10 MG TABLET (FP) PO SCH (21:03)
[2020-06-08] MEDS: MELATONIN 5 MG TABLETS PO PRN (21:04)
[2020-06-09] MEDS: hydrOXYzine PAMOATE 50 MG CAPSULE (FP) PO PRN ×3 (06:26→21:03)
[2020-06-09] MEDS: metFORMIN HCL 500 MG TABLET (FP) PO SCH ×2 (07:27→16:53)
[2020-06-09] MEDS ORDERED: PT OWN MED DRAWER 7, Y5N ONE (09:42)
[2020-06-09] MEDS: CYCLOBENZAPRINE HCL 10 MG TABLET (FP) PO SCH ×2 (10:13→21:01)
[2020-06-09] MEDS: CARVEDILOL 25 MG TABLET (FP) PO SCH ×2 (10:13→21:01)
[2020-06-09] MEDS: LISINOPRIL 10 MG TABLET PO SCH (10:13)
[2020-06-09] MEDS: PRENATAL VITAMINS W/ FOLIC ACID TABLET (FP) PO SCH (10:13)
[2020-06-09] MEDS: QUEtiapine FUMARATE 50 MG TABLET PO SCH (21:01)
[2020-06-09] MEDS: THIAMINE HCL 100 MG TABLET (FP) PO SCH (21:03)
[2020-06-10] MEDS: hydrOXYzine PAMOATE 50 MG CAPSULE (FP) PO PRN ×2 (06:42→17:43)
[2020-06-10] MEDS: metFORMIN HCL 500 MG TABLET (FP) PO SCH ×2 (07:20→17:42)
[2020-06-10] MEDS ORDERED: PT OWN MED DRAWER 7, Y5N ONE (09:18)
[2020-06-10] MEDS: PRENATAL VITAMINS W/ FOLIC ACID TABLET (FP) PO SCH (10:16)
[2020-06-10] MEDS: CARVEDILOL 25 MG TABLET (FP) PO SCH ×2 (10:16→21:37)
[2020-06-10] MEDS: CYCLOBENZAPRINE HCL 10 MG TABLET (FP) PO SCH ×2 (10:16→21:37)
[2020-06-10] MEDS: LISINOPRIL 10 MG TABLET PO SCH (10:16)
[2020-06-10] MEDS: QUEtiapine FUMARATE 50 MG TABLET PO SCH (21:37)
[2020-06-10] MEDS: THIAMINE HCL 100 MG TABLET (FP) PO SCH (21:37)
[2020-06-11] MEDS: hydrOXYzine PAMOATE 50 MG CAPSULE (FP) PO PRN ×2 (06:46→16:31)
[2020-06-11] MEDS: metFORMIN HCL 500 MG TABLET (FP) PO SCH ×2 (06:47→16:31)
[2020-06-11] MEDS: PRENATAL VITAMINS W/ FOLIC ACID TABLET (FP) PO SCH (09:04)
[2020-06-11] MEDS: CARVEDILOL 25 MG TABLET (FP) PO SCH ×2 (09:04→21:03)
[2020-06-11] MEDS: LISINOPRIL 10 MG TABLET PO SCH (09:04)
[2020-06-11] MEDS: CYCLOBENZAPRINE HCL 10 MG TABLET (FP) PO SCH ×2 (09:04→21:03)
[2020-06-11] MEDS ORDERED: PT OWN MED DRAWER 7, Y5N ONE (18:30)
[2020-06-11] MEDS: THIAMINE HCL 100 MG TABLET (FP) PO SCH (21:02)
[2020-06-11] MEDS: QUEtiapine FUMARATE 50 MG TABLET PO SCH (21:02)
[2020-06-12] MEDS: hydrOXYzine PAMOATE 50 MG CAPSULE (FP) PO PRN ×3 (06:38→21:43)
[2020-06-12] MEDS: metFORMIN HCL 500 MG TABLET (FP) PO SCH ×2 (07:17→16:34)
[2020-06-12] MEDS: CYCLOBENZAPRINE HCL 10 MG TABLET (FP) PO SCH ×2 (11:36→21:42)
[2020-06-12] MEDS: CARVEDILOL 25 MG TABLET (FP) PO SCH ×2 (11:36→21:42)
[2020-06-12] MEDS: LISINOPRIL 10 MG TABLET PO SCH (11:36)
[2020-06-12] MEDS: PRENATAL VITAMINS W/ FOLIC ACID TABLET (FP) PO SCH (11:37)
[2020-06-12] MEDS: THIAMINE HCL 100 MG TABLET (FP) PO SCH (21:42)
[2020-06-12] MEDS: QUEtiapine FUMARATE 50 MG TABLET PO SCH (21:42)
[2020-06-13] MEDS: hydrOXYzine PAMOATE 50 MG CAPSULE (FP) PO PRN ×3 (06:07→16:34)
[2020-06-13] MEDS: metFORMIN HCL 500 MG TABLET (FP) PO SCH ×2 (07:17→16:34)
[2020-06-13] MEDS: PRENATAL VITAMINS W/ FOLIC ACID TABLET (FP) PO SCH (09:57)
[2020-06-13] MEDS: LISINOPRIL 10 MG TABLET PO SCH (09:57)
[2020-06-13] MEDS: CYCLOBENZAPRINE HCL 10 MG TABLET (FP) PO SCH ×2 (09:57→21:07)
[2020-06-13] MEDS: CARVEDILOL 25 MG TABLET (FP) PO SCH ×2 (09:58→21:07)
[2020-06-13] MEDS ORDERED: ONDANSETRON *ODT* 4 MG TABLET SL ONE (10:45)
[2020-06-13] MEDS ORDERED: ONDANSETRON 4 MG TABLET PO ONE (10:45)
[2020-06-13] MEDS ORDERED: PT OWN MED DRAWER 7, Y5N ONE (18:41)
[2020-06-13] MEDS: THIAMINE HCL 100 MG TABLET (FP) PO SCH (21:07)
[2020-06-13] MEDS: QUEtiapine FUMARATE 50 MG TABLET PO SCH (21:07)
[2020-06-14] MEDS: hydrOXYzine PAMOATE 50 MG CAPSULE (FP) PO PRN ×2 (06:10→15:29)
[2020-06-14] MEDS: metFORMIN HCL 500 MG TABLET (FP) PO SCH ×2 (07:01→16:41)
[2020-06-14] MEDS ORDERED: PT OWN MED DRAWER 7, Y5N ONE (08:43)
[2020-06-14] MEDS: CARVEDILOL 25 MG TABLET (FP) PO SCH ×2 (09:47→21:41)
[2020-06-14] MEDS: CYCLOBENZAPRINE HCL 10 MG TABLET (FP) PO SCH ×2 (09:47→21:41)
[2020-06-14] MEDS: PRENATAL VITAMINS W/ FOLIC ACID TABLET (FP) PO SCH (09:47)
[2020-06-14] MEDS: LISINOPRIL 10 MG TABLET PO SCH (09:47)
[2020-06-14] MEDS: ONDANSETRON *ODT* 4 MG TABLET SL PRN (10:30)
[2020-06-14] MEDS: QUEtiapine FUMARATE 50 MG TABLET PO SCH (21:41)
[2020-06-14] MEDS: MELATONIN 5 MG TABLETS PO PRN (21:42)
[2020-06-14] MEDS: THIAMINE HCL 100 MG TABLET (FP) PO SCH (21:42)
[2020-06-15] MEDS: hydrOXYzine PAMOATE 50 MG CAPSULE (FP) PO PRN ×3 (06:16→14:28)
[2020-06-15] MEDS: metFORMIN HCL 500 MG TABLET (FP) PO SCH ×2 (07:14→16:23)
[2020-06-15] MEDS: PRENATAL VITAMINS W/ FOLIC ACID TABLET (FP) PO SCH (10:48)
[2020-06-15] MEDS: LISINOPRIL 10 MG TABLET PO SCH (10:48)
[2020-06-15] MEDS: CARVEDILOL 25 MG TABLET (FP) PO SCH ×2 (10:48→21:03)
[2020-06-15] MEDS: CYCLOBENZAPRINE HCL 10 MG TABLET (FP) PO SCH ×2 (10:48→21:03)
[2020-06-15] MEDS: ONDANSETRON *ODT* 4 MG TABLET SL PRN (10:49)
--- NOTE | 2020-06-15 16:38 | PN ---
[facility] Progress Note Note: Psychiatry Attending's note (follow-up) : Ortho Nurse is approached by patient. Mr Ortiz continue to report insomnia. Patient wishes his dose of seroquel increased. Has been on more than 150 mg/hs in the past. As per self-report. Steady gait + intact cognition. Intervention : Seroquel 200 mg po hs. Informed consent granted to
[2020-06-15] MEDS: QUEtiapine FUMARATE 200 MG TABLET PO SCH (21:04)
[2020-06-15] MEDS: THIAMINE HCL 100 MG TABLET (FP) PO SCH (21:04)
[2020-06-16] MEDS: metFORMIN HCL 500 MG TABLET (FP) PO SCH ×2 (06:23→16:32)
[2020-06-16] MEDS: hydrOXYzine PAMOATE 50 MG CAPSULE (FP) PO PRN ×3 (06:23→21:52)
[2020-06-16] MEDS: CYCLOBENZAPRINE HCL 10 MG TABLET (FP) PO SCH ×2 (10:37→21:52)
[2020-06-16] MEDS: PRENATAL VITAMINS W/ FOLIC ACID TABLET (FP) PO SCH (10:37)
[2020-06-16] MEDS: CARVEDILOL 25 MG TABLET (FP) PO SCH ×2 (10:37→21:52)
[2020-06-16] MEDS: LISINOPRIL 10 MG TABLET PO SCH (10:37)
[2020-06-16] MEDS: MELATONIN 5 MG TABLETS PO PRN (21:51)
[2020-06-16] MEDS: THIAMINE HCL 100 MG TABLET (FP) PO SCH (21:52)
[2020-06-16] MEDS: QUEtiapine FUMARATE 200 MG TABLET PO SCH (21:52)
[2020-06-17] MEDS: hydrOXYzine PAMOATE 50 MG CAPSULE (FP) PO PRN ×2 (06:15→17:07)
[2020-06-17] MEDS: metFORMIN HCL 500 MG TABLET (FP) PO SCH ×2 (06:44→16:56)
[2020-06-17] MEDS: CARVEDILOL 25 MG TABLET (FP) PO SCH ×2 (09:34→21:05)
[2020-06-17] MEDS: PRENATAL VITAMINS W/ FOLIC ACID TABLET (FP) PO SCH (09:34)
[2020-06-17] MEDS: CYCLOBENZAPRINE HCL 10 MG TABLET (FP) PO SCH ×2 (09:34→21:05)
[2020-06-17] MEDS: LISINOPRIL 10 MG TABLET PO SCH (09:34)
[2020-06-17] MEDS: MELATONIN 5 MG TABLETS PO PRN (21:05)
[2020-06-17] MEDS: QUEtiapine FUMARATE 200 MG TABLET PO SCH (21:05)
[2020-06-17] MEDS: THIAMINE HCL 100 MG TABLET (FP) PO SCH (21:06)
[2020-06-18] MEDS: hydrOXYzine PAMOATE 50 MG CAPSULE (FP) PO PRN ×3 (06:15→21:55)
[2020-06-18] MEDS: metFORMIN HCL 500 MG TABLET (FP) PO SCH ×2 (07:03→16:42)
[2020-06-18] MEDS: LISINOPRIL 10 MG TABLET PO SCH (10:41)
[2020-06-18] MEDS: CARVEDILOL 25 MG TABLET (FP) PO SCH ×2 (10:41→21:54)
[2020-06-18] MEDS: CYCLOBENZAPRINE HCL 10 MG TABLET (FP) PO SCH ×2 (10:41→21:54)
[2020-06-18] MEDS: PRENATAL VITAMINS W/ FOLIC ACID TABLET (FP) PO SCH (10:42)
[2020-06-18] MEDS: THIAMINE HCL 100 MG TABLET (FP) PO SCH (21:54)
[2020-06-18] MEDS: QUEtiapine FUMARATE 200 MG TABLET PO SCH (21:54)
[2020-06-19] MEDS: hydrOXYzine PAMOATE 50 MG CAPSULE (FP) PO PRN ×4 (05:59→21:46)
[2020-06-19] MEDS: metFORMIN HCL 500 MG TABLET (FP) PO SCH ×2 (07:15→16:34)
[2020-06-19] MEDS: CYCLOBENZAPRINE HCL 10 MG TABLET (FP) PO SCH ×2 (09:50→21:03)
[2020-06-19] MEDS: CARVEDILOL 25 MG TABLET (FP) PO SCH ×2 (09:50→21:03)
[2020-06-19] MEDS: LISINOPRIL 10 MG TABLET PO SCH (09:50)
[2020-06-19] MEDS: PRENATAL VITAMINS W/ FOLIC ACID TABLET (FP) PO SCH (09:51)
[2020-06-19] MEDS: QUEtiapine FUMARATE 200 MG TABLET PO SCH (21:03)
[2020-06-19] MEDS: THIAMINE HCL 100 MG TABLET (FP) PO SCH (21:04)
[2020-06-20] MEDS: hydrOXYzine PAMOATE 50 MG CAPSULE (FP) PO PRN ×3 (06:37→21:50)
[2020-06-20] MEDS: metFORMIN HCL 500 MG TABLET (FP) PO SCH ×2 (07:09→16:39)
[2020-06-20] MEDS: CYCLOBENZAPRINE HCL 10 MG TABLET (FP) PO SCH ×2 (09:07→21:49)
[2020-06-20] MEDS: ONDANSETRON *ODT* 4 MG TABLET SL PRN (09:07)
[2020-06-20] MEDS: CARVEDILOL 25 MG TABLET (FP) PO SCH ×2 (09:07→21:49)
[2020-06-20] MEDS: LISINOPRIL 10 MG TABLET PO SCH (09:07)
[2020-06-20] MEDS: PRENATAL VITAMINS W/ FOLIC ACID TABLET (FP) PO SCH (09:08)
[2020-06-20] MEDS: QUEtiapine FUMARATE 200 MG TABLET PO SCH (21:49)
[2020-06-20] MEDS: THIAMINE HCL 100 MG TABLET (FP) PO SCH (21:49)
[2020-06-20] MEDS: MELATONIN 5 MG TABLETS PO PRN (21:51)
[2020-06-21] MEDS: hydrOXYzine PAMOATE 50 MG CAPSULE (FP) PO PRN ×4 (06:17→21:02)
[2020-06-21] MEDS: metFORMIN HCL 500 MG TABLET (FP) PO SCH ×2 (06:18→16:29)
[2020-06-21] MEDS: CYCLOBENZAPRINE HCL 10 MG TABLET (FP) PO SCH ×2 (10:08→21:02)
[2020-06-21] MEDS: CARVEDILOL 25 MG TABLET (FP) PO SCH ×2 (10:08→21:02)
[2020-06-21] MEDS: LISINOPRIL 10 MG TABLET PO SCH (10:08)
[2020-06-21] MEDS: PRENATAL VITAMINS W/ FOLIC ACID TABLET (FP) PO SCH (10:08)
[2020-06-21] MEDS: THIAMINE HCL 100 MG TABLET (FP) PO SCH (21:02)
[2020-06-21] MEDS: QUEtiapine FUMARATE 200 MG TABLET PO SCH (21:02)
[2020-06-22] MEDS: metFORMIN HCL 500 MG TABLET (FP) PO SCH ×2 (07:57→17:12)
[2020-06-22] MEDS: hydrOXYzine PAMOATE 50 MG CAPSULE (FP) PO PRN ×3 (08:52→21:07)
[2020-06-22] MEDS: PRENATAL VITAMINS W/ FOLIC ACID TABLET (FP) PO SCH (09:27)
[2020-06-22] MEDS: CARVEDILOL 25 MG TABLET (FP) PO SCH ×2 (09:28→21:07)
[2020-06-22] MEDS: CYCLOBENZAPRINE HCL 10 MG TABLET (FP) PO SCH ×2 (09:28→21:07)
[2020-06-22] MEDS: LISINOPRIL 10 MG TABLET PO SCH (09:28)
[2020-06-22] MEDS: QUEtiapine FUMARATE 200 MG TABLET PO SCH (21:07)
[2020-06-22] MEDS: MELATONIN 5 MG TABLETS PO PRN (21:08)
[2020-06-22] MEDS: THIAMINE HCL 100 MG TABLET (FP) PO SCH (21:08)
[2020-06-23] MEDS: hydrOXYzine PAMOATE 50 MG CAPSULE (FP) PO PRN ×4 (06:57→22:10)
[2020-06-23] MEDS: metFORMIN HCL 500 MG TABLET (FP) PO SCH ×2 (07:05→17:40)
[2020-06-23] MEDS: CARVEDILOL 25 MG TABLET (FP) PO SCH ×2 (10:43→22:09)
[2020-06-23] MEDS: LISINOPRIL 10 MG TABLET PO SCH (10:43)
[2020-06-23] MEDS: CYCLOBENZAPRINE HCL 10 MG TABLET (FP) PO SCH ×2 (10:43→22:09)
[2020-06-23] MEDS: PRENATAL VITAMINS W/ FOLIC ACID TABLET (FP) PO SCH (10:49)
[2020-06-23] MEDS: MELATONIN 5 MG TABLETS PO PRN (22:09)
[2020-06-23] MEDS: THIAMINE HCL 100 MG TABLET (FP) PO SCH (22:09)
[2020-06-23] MEDS: QUEtiapine FUMARATE 200 MG TABLET PO SCH (22:09)
[2020-06-24] MEDS: metFORMIN HCL 500 MG TABLET (FP) PO SCH ×2 (07:11→18:27)
[2020-06-24] MEDS: PRENATAL VITAMINS W/ FOLIC ACID TABLET (FP) PO SCH (10:46)
[2020-06-24] MEDS: LISINOPRIL 10 MG TABLET PO SCH (10:46)
[2020-06-24] MEDS: CARVEDILOL 25 MG TABLET (FP) PO SCH ×2 (10:46→21:36)
[2020-06-24] MEDS: CYCLOBENZAPRINE HCL 10 MG TABLET (FP) PO SCH ×2 (10:46→21:36)
[2020-06-24] MEDS: hydrOXYzine PAMOATE 50 MG CAPSULE (FP) PO PRN ×3 (10:46→21:36)
--- NOTE | 2020-06-24 11:56 | PN ---
S Progress Note Note: Psychiatric nurse practitioner note: Patient scheduled for discharge on 06/25/20. A 30 day prescription of Seroquel 200mg HS was electronically sent to [facility] @ [address] [place] [id number].
[2020-06-24] MEDS: QUEtiapine FUMARATE 200 MG TABLET PO SCH (21:36)
[2020-06-24] MEDS: THIAMINE HCL 100 MG TABLET (FP) PO SCH (21:36)
[2020-06-25] MEDS: hydrOXYzine PAMOATE 50 MG CAPSULE (FP) PO PRN (06:41)
[2020-06-25] MEDS: metFORMIN HCL 500 MG TABLET (FP) PO SCH (06:42)
[2020-06-25 06:48] VITALS: BP 127/79; PULSE 85; TEMP 97.6
--- NOTE | 2020-06-25 09:06 | DS ---
[facility] Rehab Discharge Summary - [facility] Re[facility] Discharge Summary Admission Date: 06/02/20 Discharge Date: 06/25/20 - History Present History: Alcohol dependence - Discharge Physical Exam Vital Signs: Vital Signs Temperature 97.6 F 06/25/20 06:37 Pulse Rate 85 06/25/20 06:37 Respiratory Rate 18 06/25/20 06:37 Blood Pressure 127/79 06/25/20 06:37 O2 Sat by Pulse Oximetry (%) 96 06/25/20 06:37 ROS: denies headache,n/v/d, alcohol cravings and shakes. PE alert and oriented x 3 skin warm and dry car s1s2 resp cta bl ext full rom, amb ad papa, no tremors denies si/hi A/P; alcohol dependence DM HTN patient is medically stable for discharge today from rehab - Treatment Discharge Condition: Discharge condition good, Rehabilitated safely, Responded well, Outpatient referral accepted Hospital Course: Patient discharged from rehab today for alcohol dependence. He is medically stable and denies SI/HI. During course of treatment, patient was evaluated and treated by psych team, attended group meetings and participated in 1:1 counseling sessions. Aftercare arranged for [facility], intake appt for today at 12 noon. Patient is motivated to maintain sobriety and medically advised to follow up with PCP upon discharge from assisted care. Ambulatory Orders Carvedilol 25 mg PO BID #30 tablet 06/21/20 Metformin HCl [Glucophage] 500 mg PO BID #30 tablet 06/21/20 Quetiapine Fumarate [Seroquel -] 200 mg PO HS #30 tablet 06/24/20 Carvedilol [Coreg -] 25 mg PO BID #30 tablet 06/25/20 Lisinopril [Prinivil] 10 mg PO DAILY #14 tablet 06/25/20 metFORMIN HCL [Glucophage -] 500 mg PO BIDAC #30 tablet 06/25/20 - Medication Discharge Medications: Ambulatory Orders Carvedilol 25 mg PO BID #30 tablet 06/21/20 Metformin HCl [Glucophage] 500 mg PO BID #30 tablet 06/21/20 Quetiapine Fumarate [Seroquel -] 200 mg PO HS #30 tablet 06/24/20 Carvedilol [Coreg -] 25 mg PO BID #30 tablet 06/25/20 Lisinopril [Prinivil] 10 mg PO DAILY #14 tablet 06/25/20 metFORMIN HCL [Glucophage -] 500 mg PO BIDAC #30 tablet 06/25/20 - Medication-Assisted Treatment (MAT) Medication-Assisted Treatment (MAT): No - Discharge Instructions Diet, activity, other medical instructions: Diet: ncs, maxwell as gayathri Activity: amb ad papa as tolerated Other medical instructions: f/u with pcp as recommended - Follow-up Referral Minutes to complete discharge: 35 - AMA Did Patient Leave Against Medical Advice: No
[2020-06-25] MEDS: PRENATAL VITAMINS W/ FOLIC ACID TABLET (FP) PO SCH (09:17)
[2020-06-25] MEDS: LISINOPRIL 10 MG TABLET PO SCH (09:17)
[2020-06-25] MEDS: CARVEDILOL 25 MG TABLET (FP) PO SCH (09:17)
[2020-06-25] MEDS: CYCLOBENZAPRINE HCL 10 MG TABLET (FP) PO SCH (09:18)
== END 2020-06-25 09:48 | disposition home or self-care (01) | DRG 772 ==
LOC: YASAS 11:38 → Y3W 11:39
PROVIDERS: ADMIT Allergy & Immunology; ATTEND Allergy & Immunology
PROC: HZ42ZZZ Group Counseling for Substance Abuse Treatment, Cognitive-Behavioral (ICD-10-PCS; principal; 2020-06-02)
DX: F10.20 Alcohol dependence, uncomplicated (principal); G47.00 Insomnia, unspecified; I10 Essential (primary) hypertension; E11.9 Type 2 diabetes mellitus without complications; Z79.84 Long term (current) use of oral hypoglycemic drugs; M79.10 Myalgia, unspecified site
CPT/HCPCS: 82962; J0735; Q0162